=== PATIENT | female | born 1980 | race Caucasian/White ===

== ENCOUNTER 2019-02-26 23:44 | Emergency (ER) | payer OTHER ==
[~2019-02-26] VITALS: Ht 160 cm; Wt 77.1 kg
--- OUTSIDE RECORDS SUMMARY | ~2019-02-26 | XMS | Encounter Summary ---
Demographics + + + | Address | [address] | | | [place] [address] | + + + | Home Phone | | + + + | Preferred Language | Unknown | + + + | Marital Status | | + + + | Buddhism Affiliation | Unknown | + + + | Race | White | + + + | Ethnic Group | Not or | + + + Author + + + | Author | [facility] | + + + | Organization | [facility] | + + + | Address | Unknown | + + + | Phone | Unavailable | + + + Support + + + + + | Name | Relationship | Address | Phone | + + + + + | Eliel Tee | ECON | [address] | | | | | [place] | | | | | [address] | | + + + + + Care Team Providers + +------+ + | Care Card Checker Name | Role | Phone | + +------+ + PCP | Unavailable | + +------+ + Reason for Visit + + + | Reason | Comments | + + + | | | + + + Encounter Details +--------+ + + + + | Date | Type | Department | Care Team | Description | +--------+ + + + + | 06/22/ | Clinical | Center | | | | 2005 | Support | Perinatology [address] | | | | | Staff | [address] | | | | | | [place] Mailcode: [address] | | | | | | [address] | | | | | | floor, Room [address] | | | | | | [place], [place] | | | | | | [address] | | | | | | [phone] | | | +--------+ + + + + Social History + +-------+ +--------+------+ | Tobacco Use | Types | Packs/Day | Years | Date | | | | | Used | | + +-------+ +--------+------+ | Never Assessed | | | | | + +-------+ +--------+------+ + + + | Sex Assigned at | Date Recorded | | | | + + + | Not on file | | + + + + + + + | Job Start Date | Occupation | Industry | + + + + | Not on file | Not on file | Not on file | + + + + + + + + | Travel History | Travel Start | Travel End | + + + + + + | No recent travel history available. | + + documented as of this encounter Progress Notes Terri Obrien - 06/22/2005 1:22 PM PST Preoperative diagnosis: h/o child with metabolic disorder Postoperative diagnosis: same Procedure: Amniocentesis Physician: Dr. Terri Obrien M.D. Dispenser Operator: Katie Hill Brief history: Kim Tee is a 24 y.o. female gravid female at 20.5 weeks gestation, h ere for amniocentesis. She is Rh-positive. Prior to beginning the procedure, patient identity was verified, as well as the procedure t o be performed and the site. All equipment required was ready and available. The patient wa s positioned appropriately. Procedure: The amniocentesis procedure was explained to the patient, including risks, bene fits, and alternatives, and all of her questions were answered. A consent form has been com pleted and signed. The patient was placed supine and transabdominal ultrasonography reveale d a cephalic fetus and posteriorplacenta. A sufficient pocket of amniotic fluid was identif ied in the left upper quadrant. The abdominal skin was prepped with Betadine. Local anesthetic was notused. Using sterile technique and under ultrasound guidance, a 22gauge spinal needle was placed transabdominall y without difficulty. The placenta was not traversed by the needle. With the needle tip in the fluid pocket, 20 cc of clear fluid was withdrawn. The needle was removed and the fluid sent to the laboratory for analysis. heart rate was observed immediately after the pr ocedure and was stable. The patient tolerated the procedure well. She was given precautions and discharged to home. She will follow-up in the clinic in 2 we eks with . documented in this encount er Plan of Treatment Not on filedocumented as of this encounter Procedures + +--------+ + + + | Procedure Name | Priori | Date/Time | Associated Diagnosis | Comments | | | ty | | | | + +--------+ + + + | CYTOGENETICS REPORT | Routin | 06/22/2005 | | Results for this | | | e | | | procedure are in the | | | | | | results section. | + +--------+ + + + documented in this encounter Results CYTOGENETICS REPORT (06/22/2005) + + + + + + | Component | Value | Ref Range | Performed | Pathologist | | | | | At | Signature | + + + + + + | CHROMOSOME | SPECIMEN TYPE AND TYPE | | | | | REPORT | OF STUDY:A Amniotic | | | | | | Fluid: Fibroblast | | | | | | PrimaryCultureChromosome | | | | | | Results: NoneKARYOTYPE | | | | | | RESULTS: See below | | | | | | IMPRESSIONS AND | | | | | | RECOMMENDATIONS:Amniotic | | | | | | fluid cells were | | | | | | successfully grown, | | | | | | frozen and stored. | | | | | | Cellswere sent to | | | | | | [facility], [facility] | | | | | | [facility], | | | | | | 07/04/2005. For | | | | | | questions regarding this | | | | | | report, please call | | | | | | . | | | | | | The clinical | | | | | | interpretation was made | | | | | | by the clinical | | | | | | prior authorization nurse.Rendering | | | | | | Diagnostician: Fátima | | | | | | Sloan, PhD, AB, | | | | | | FACMGCytogeneticistElect | | | | | | ronically Signed | | | | | | 08/06/2005Comment: | | | | | | SOURCE OF SPECIMEN: | | | | | | Amniotic Fluid: | | | | | | Fibroblast Primary | | | | | | Culture | | | | + + + + + + + + | Specimen | + + | | + + + + + + + | Performing | Address | City/State/Zipcode | Phone Number | | Organization | | | | + + + + + | [facility] | [facility] | [place] [address] | | | [facility] | [address] | | | | | [address]VE[address] | | | + + + + + documented in this encounter Visit Diagnoses + + | Diagnosis | + + | Unspecified complication of , unspecified as to episode of care - Primary | + + documented in this encounter"
--- OUTSIDE RECORDS SUMMARY | ~2019-02-26 | XMS | Clinical Summary ---
Demographics + + + | Address | [address] | | | [place] [address] | + + + | Home Phone | | + + + | Preferred Language | Unknown | + + + | Marital Status | | + + + | Christianity Affiliation | Unknown | + + + | Race | White | + + + | Ethnic Group | Not or | + + + Author + + + | Author | [facility] | + + + | Organization | [facility] | + + + | Address | Unknown | + + + | Phone | Unavailable | + + + Support + + + + + | Name | Relationship | Address | Phone | + + + + + | Eliel Aleman | KITA | [address] | | | | | [place] | | | | | [address] | | + + + + + Care Team Providers + +------+ + | Care Custom Bike Builder Name | Role | Phone | + +------+ + PCP | Unavailable | + +------+ + Source Comments MERRY is fully live on both [facility] and [facility] InPatient.[facility] Allergies Not on File Medications Not on file Active Problems Not on file Social History + +-------+ +--------+------+ | Tobacco [...] recent travel history available. | + + Last Filed Vital Signs Not on file Plan of Treatment + + + + + | Health Maintenance | Due Date | Last Done | Comments | + + + + + | Influenza (Flu) | | | | | vaccination (#1) | 9 | | | + + + + + | Pneumococcal | Aged Out | | No longer eligible | | vaccination | | | based on patient's | | | | | age to complete this | | | | | topic | + + + + + Results Not on filefrom Last 3 Months Insurance + +--------+ +--------+ + +--------+ | Payer | Benefi | Subscriber | Effect | Phone | Address | Type | | | t Plan | ID | aisha | | | | | | / | | Dates | | | | | | Group | | | | | | + +--------+ +--------+ + +--------+ | TERRIE AND | PJ | [phone] | Effect | [phone] | [address] | Transp | | | AND | | aisha | [phone] | [address] | | | [employer] | | for | | [place], [place] | [employer] | | | [place] | | all | | [address] | [address] | | | INC | | dates | | | | + +--------+ +--------+ + +--------+ | [employer] | PROVID | [phone] | Effect | | | PPO | | | ENCE | | aisha | | | | | | PREF | | for | | | | | | | | all | | | | | | | | dates | | | | + +--------+ +--------+ + +--------+ + +--------+ +--------+ + + | Guarantor Name | Accoun | Relation to | Date | Phone | Billing Address | | | t Type | Patient | of | | | | | | | | | | + +--------+ +--------+ + + | KIM ALEMAN | Person | Self [birth year] | [address] | | | al/[place]erald | | 1981 | [phone] | [place] | | | [place] | | | [address] (Home) | [address] | | | | | | [phone] | | | | | | | 0 (Work) | | + +--------+ +--------+ + +"
--- OUTSIDE RECORDS SUMMARY | ~2019-02-26 | XMS | Encounter Summary ---
Demographics + + + | Address | [address] | | | [place] [address] | + + + | Home Phone | | + + + | Preferred Language | Unknown | + + + | Marital Status | | + + + | Restorationist Affiliation | Unknown | + + + | Race | White | + + + | Ethnic Group | Not or | + + + Author + + + | Author | [facility] | + + + | Organization | [facility] | + + + | Address | Unknown | + + + | Phone | Unavailable | + + + Support + + + + + | Name | Relationship | Address | Phone | + + + + + | Eliel Tee | ECON | [address] | | | | | [place] | | | | | [address] | | + + + + + Care Team Providers + +------+ + | Care Food Scientist Name | Role | Phone | + +------+ + PCP | Unavailable | + +------+ + Encounter Details +--------+---------+ + + + | Date | Type | Department | Care Team | Description | +--------+---------+ + + + | 06/22/ | Office | Center | Dayanna Conti, | Famil Hered Dis | | 2005 | Visit | Diagnosis | [facility] [address] | Antepart (Primary | | | | [address] | [address] | Dx) | | | | Cher Lozano Mailcode: | [place] [address] | | | | | [address], | [phone] | | | | | 8th floor, Room | | | | | | [address] [place], [place] | | | | | | [address] | | | | | | [phone] | | | +--------+---------+ + + + Social History + +-------+ [...] documented as of this encounter Progress Notes Zahra Lowry - 06/22/2005 7:08 PM COLTSee letter. documented in this encounter Plan of Treatment Not on filedocumented as of this encounter Visit Diagnoses + + | Diagnosis | + + | Hereditary disease in family possibly affecting fetus, affecting management of mother, | | antepartum condition or complication - Primary | + + documented in this encounter"
--- OUTSIDE RECORDS SUMMARY | ~2019-02-26 | XMS | Encounter Summary ---
Demographics + + + | Address | [address] | | | [place] [address] | + + + | Home Phone | | + + + | Preferred Language | Unknown | + + + | Marital Status | | + + + | Lutheran Affiliation | Unknown | + + + | Race | White | + + + | Ethnic Group | Not or | + + + Author + + + | Author | [facility] | + + + | Organization | [facility] | + + + | Address | Unknown | + + + | Phone | Unavailable | + + + Support + + + + + | Name | Relationship | Address | Phone | + + + + + | Eliel Tee | ECON | [address] | | | | | [place] | | | | | [address] | | + + + + + Care Team Providers + +------+ + | Care Loom Changer Name | Role | Phone | + [...] | | | Cher Lozano Mailcode: | [place] [address] | | | | | [address], | [phone] | | | | | 8th floor, Room | | | | | | [address] [place], [place] | | | | | | [address] | | | | | | [phone] | | | +--------+---------+ + + + [...]
--- OUTSIDE RECORDS SUMMARY | ~2019-02-26 | XMS | Encounter Summary ---
Demographics + + + | Address | [address] | | | [place] [address] | + + + | Home Phone | | + + + | Preferred Language | Unknown | + + + | Marital Status | | + + + | Taoist Affiliation | Unknown | + + + | Race | White | + + + | Ethnic Group | Not or | + + + Author + + + | Author | [facility] | + + + | Organization | [facility] | + + + | Address | Unknown | + + + | Phone | Unavailable | + + + Support + + + + + | Name | Relationship | Address | Phone | + + + + + | Eliel Tee | ECON | [address] | | | | | [place] | | | | | [address] | | + + + + + Care Team Providers + +------+ + | Care Scientific Aide Name | Role | Phone | + +------+ + PCP | Unavailable | + +------+ + Encounter Details +--------+ + + + + | Date | Type | Department | Care Team | Description | +--------+ + + + + | 06/22/ | Ancillary | Registration [address] | Terri Obrien MD | | | 2005 | Registratio | [address] | [address] | | | | n | [address] Mailcode: [id number] | [address] | | | | | [place], [place] | [place], [place] | | | | | [address] | [address] | | | | | [phone] | [phone] | | | | | | | | +--------+ + + + [...] + + documented as of this encounter Plan of Treatment Not on filedocumented as of this encounter Procedures + +--------+ + + + | Procedure Name | Priori | Date/Time | Associated Diagnosis | Comments | | | ty | | | | + +--------+ + + + | LAB OTHER | Routin | 06/22/2005 | | Results for this | | | e | 11:51 AM | | procedure are in the | | | | PST | | results section. | + +--------+ + + + documented in this encounter Results LAB OTHER (06/22/2005 11:51 AM PST) + + + + + + | Component | Value | Ref Range | Performed | Pathologist | | | | | At | Signature | + + + + + + | MISC REF | FATTY ACID OXIDATION | | [facility] | | | TEST NAME | DISORDER, fibroblasts | | DEPARTMENT | | | | | | OF | | | | | | PATHOLOGY | | + + + + + + | MISC REF | See scanned report in | | [facility] | | | TEST RESULT | [facility]. | | DEPARTMENT | | | | | | OF | | | | | | PATHOLOGY | | + + + + + + | NORMAL | Interpretation: | | [facility] | | | RANGE | RadioHPLC profiling of | | DEPARTMENT | | | | B-oxidation | | OF | | | | [id number] | | PATHOLOGY | | | | diates derived from | | | | | | palmitate, | | | | | | branched-chain amino | | | | | | acids [id number] | | | | | | revealed normal results, | | | | | | outside of mildly | | | | | | elevatedpalmityle- | | | | | | (C16)-carnitine. | | | | | | However, amniocyte | | | | | | viability and growth | | | | | | werenot optimal, which | | | | | | may influence these | | | | | | results and obscure the | | | | | | partiallong chain fatty | | | | | | acid defect noted in the | | | | | | sibling, Ambrosey | | | | | | Coiner. | | | | + + + + + + | REFERRAL | [facility] | | [facility] | | | LAB NAME | [place] | | DEPARTMENT | | | | | | OF | | | | | | PATHOLOGY | | + + + + + + + + | Specimen | + + | | + + + + + + + | Performing | Address | City/State/Zipcode | Phone Number | | Organization | | | | + + + + + | [facility] DEPARTMENT | [address] | [place] [address] | | | PATHOLOGY | [facility] | | | + + + + + | [facility] | [address] | [place] [address] | | | PATHOLOGY | [facility] | | | + + + + + documented in this encounter Visit Diagnoses Not on filedocumented in this encounter"
--- OUTSIDE RECORDS SUMMARY | ~2019-02-26 | XMS | Clinical Summary ---
Demographics + + + | Address | [address] | | | [place] [address] | + + + | Home Phone | | + + + | Preferred Language | Unknown | + + + | Marital Status | | + + + | Gnosticist Affiliation | Unknown | + + + | Race | White | + + + | Ethnic Group | Not or | + + + Author + + + | Author | [facility] | + + + | Organization | [facility] | + + + | Address | Unknown | + + + | Phone | Unavailable | + + + Support + + + + + | Name | Relationship | Address | Phone | + + + + + | Eliel Aleman | KITA | [address] | | | | | [place] | | | | | [address] | | + + + + + Care Team Providers + +------+ + | Care Aerobics Instructor Name | Role | Phone | + +------+ + PCP | Unavailable | + +------+ + Source Comments MERRY is fully live on both [facility] and [facility] InPatient.[facility] Allergies Not [...] | [employer] | | for | | [place], [place] | [employer] | | | LL | | all | | [address] | [address] | | | INC | [...] | | al/[place]erald | | 1981 | [phone] | [place] | | | [place] | | | [address] (Home) | [address] | | | | | | [phone] | | | | | | | 0 (Work) | | + +--------+ +--------+ + +"
--- OUTSIDE RECORDS SUMMARY | ~2019-02-26 | XMS | Encounter Summary ---
Demographics + + + | Address | [address] | | | [place] [address] | + + + | Home Phone | | + + + | Preferred Language | Unknown | + + + | Marital Status | | + + + | Anglican Affiliation | Unknown | + + + | Race | White | + + + | Ethnic Group | Not or | + + + Author + + + | Organization | Unknown | + + + | Address | Unknown | + + + | Phone | Unavailable | + + + Support + + + + + | Name | Relationship | Address | Phone | + + + + + | Eliel Aleman | ECON | [address] | | | | | [place] | | | | | [address] | | + + + + + Care Team Providers + +------+ + | Care County Assessor Name | Role | Phone | + +------+ + PCP | Unavailable | + +------+ + Encounter Details +--------+ + + + + | Date | Type | Department | Care Team | Description | +--------+ + + + + | 06/19/ | Results | | Other, Faculty | | | 2005 | Only | | [phone] | | +--------+ + + + + [...] | + +--------+ + + + | [facility] GUIDANCE | Routin | 06/22/2005 | | Results for this | | AMNIOCENTESIS | e | 1:01 PM | | procedure are in the | | | | PST | | results section. | + +--------+ + + + | US AMNIOCENTESIS | Routin | 06/22/2005 | | Results for this | | | e | 1:01 PM | | procedure are in the | | | | PST | | results section. | + +--------+ + + + | US PREG UTERUS | Routin | 06/22/2005 | | Results for this | | DETAIL | e | 1:01 PM | | procedure are in the | | | | PST | | results section. | + +--------+ + + + documented in this encounter Results US GUIDANCE AMNIOCENTESIS (06/22/2005 1:01 PM PST) + + + + + + | Component | Value | Ref Range | Performed | Pathologist | | | | | At | Signature | + + + + + + | [facility] GUIDANCE | Radiologist 1: TINY | | | | | | Yulissa ZUNIGAPat. Name: | | | | | AMNIOCENTES | KIM ALEMAN | | | | | IS | MRN: | | | | | | [id number] Date: | | | | | | 06/22/2005 | | | | | | Accn: | | | | | | [id number]: | | | | | | 1980 | | | | | | Age: | | | | | | 24Height: | | | | | | | | | | | | | | | | | | Weight:BP: | | | | | | | | | | | | | | | | | | ---LMP: | | | | | | 02/01/2005 | | | | | | GA Select: 20.1 weeks | | | | | | (LMP)GA by LMP: 20.1 | | | | | | weeks JORGE: | | | | | | 11/08/2005 | | | | | | (LMP)GA by US: 20.5 | | | | | | weeksPregnancies: | | | | | | 2, Para | | | | | | 1001Hist/Ind: Hx of | | | | | | Previous Child w/ | | | | | | Metabolic | | | | | | Disorder | | | | | | | | | | | | M | | | | | | EASUREMENTS /T/ | | | | | | AGE | | | | | | GROWTH EVALUATION | | | | | | Measurement GA | | | | | | Range Source %for | | | | | | GA Ratios | | | | | | ---- ------- | | | | | | ------- | | | | | | BPD | | | | | | 4.9 cm 20.9 | | | | | | (19.2-22.6) [facility] BPD | | | | | | 71% FL/BPD 0.67HC 18.4 | | | | | | cm 20.8 (19.3-22.3) | | | | | | [facility] HC 70% FL/AC | | | | | | 0.21AC 16.0 cm 21.1 | | | | | | (19.0-23.2) [facility] AC | | | | | | 71% HC/AC 1.15 (1.06 | | | | | | -1.24)FL 3.3 cm 20.4 | | | | | | (18.6-22.2) [facility] FL | | | | | | 57% CI 0.74 | | | | | | (0.70 -0.86)HL 3.3 cm | | | | | | 21.2 (19.5-22.9) Natalia | | | | | | HL 79% GA for | | | | | | sonogram 20.5 wk | | | | | | (19.1-21.9) | | | | | | Weight Estimate:based on | | | | | | (BPD,HC,AC,FL) [facility] | | | | | | Weight: 376 gm | | | | | | (321-431)[place] | | | | | | | | | | | | | | | | | | : 0lbs, 13oz | | | | | | | | | | | | | | | | | | CLINICAL | | | | | | SUMMARY ANATOMY: | | | | | | | | | | | | Seen Not | | | | | | Seen Abnormal | | | | | | | | | | | | | | | | | | Seen PreviousBPD | | | | | | level | | | | | | (X) ( ) | | | | | | ( ) ( | | | | | | )Lateral ventricles | | | | | | (X) ( ) | | | | | | ( ) ( | | | | | | )Choroid plexus | | | | | | (X) ( | | | | | | ) ( ) ( | | | | | | )Posterior fossa | | | | | | (X) ( | | | | | | ) ( ) ( | | | | | | )Nuchal | | | | | | fold/translucency | | | | | | ( ) (X) ( ) | | | | | | ( )Spine | | | | | | | | | | | | (X) ( ) ( | | | | | | ) ( )Four | | | | | | chamber heart | | | | | | (X) ( ) | | | | | | ( ) ( )LVOT | | | | | | | | | | | | (X) ( ) | | | | | | ( ) ( )RVOT | | | | | | | | | | | | (X) ( ) | | | | | | ( ) ( | | | | | | )Aortic arch | | | | | | ( ) | | | | | | (X) ( ) ( | | | | | | )Ductal arch | | | | | | ( ) | | | | | | (X) ( ) ( | | | | | | )Diaphragm | | | | | | (X) | | | | | | ( ) ( ) ( | | | | | | )Stomach | | | | | | (X) | | | | | | ( ) ( ) | | | | | | ( )Cord | | | | | | insertion/abdominal wall | | | | | | (X) ( ) ( ) | | | | | | ( )Kidneys | | | | | | | | | | | | (X) ( ) ( ) | | | | | | ( )Bladder | | | | | | | | | | | | (X) ( ) ( ) | | | | | | ( )3 vessel | | | | | | cord | | | | | | (X) ( ) ( | | | | | | ) ( )Facial | | | | | | profile | | | | | | (X) ( ) | | | | | | ( ) ( )Orbits | | | | | | | | | | | | (X) ( ) | | | | | | ( ) ( | | | | | | )Nose/lips | | | | | | ( ) | | | | | | (x) ( ) ( | | | | | | )Nasal bone | | | | | | (X) | | | | | | ( ) ( ) ( | | | | | | )Upper extremities | | | | | | (X) ( | | | | | | ) ( ) ( | | | | | | )Lower extremities | | | | | | (X) ( ) | | | | | | ( ) ( | | | | | | )Radius/ulna | | | | | | (X) ( | | | | | | ) ( ) ( | | | | | | )Tibia/fibula | | | | | | (X) | | | | | | ( ) ( ) ( | | | | | | )Hands | | | | | | (X) | | | | | | ( ) ( ) | | | | | | ( )Feet | | | | | | | | | | | | ( ) (X) ( ) | | | | | | ( ) Type of | | | | | | Gestation: | | | | | | SingletonIntrauterine | | | | | | in breech | | | | | | presentation.Placental | | | | | | location: | | | | | | PosteriorThere is no | | | | | | placenta previa.Amniotic | | | | | | fluid volume is | | | | | | normal.Uterus and | | | | | | adnexa: No abnormalities | | | | | | seenThere is | | | | | | heart motion and gross | | | | | | | | | | | | movement.Successful | | | | | | amniocentesis performed | | | | | | by .Post | | | | | | procedural heart motion | | | | | | is documented.The feet | | | | | | are not well seen due to | | | | | | position. | | | | | | | | | | | | | | | | | | IMPRESSIO | | | | | | N:24 year old at | | | | | | 20.1 weeks with | | | | | | complicated | | | | | | byhistory of previous | | | | | | child with metabolic | | | | | | syndrome1. Single viable | | | | | | intrauterine | | | | | | pregnancy2. Targeted | | | | | | anomaly screen does not | | | | | | reveal any major or | | | | | | minormarkers for | | | | | | aneuploidy.The feet and | | | | | | nose lips however are | | | | | | not wellseen3. | | | | | | Amniocentesis is | | | | | | performed without | | | | | | difficulty | | | | | | Recommendations:1. | | | | | | Follow up in 4 weeks to | | | | | | visualize feet and nose | | | | | | lips | | | | + + + + + + + + | Specimen | + + | | + + + + + | Narrative | Performed At | + + + | Ordered by FRACISCO ORTIZ | | + + + + +---------+ + + | Performing | Address | City/State/Zipcode | Phone Number | | Organization | | | | + +---------+ + + | [facility] DEPARTMENT OF | | | | | RADIOLOGY | | | | + +---------+ + + US AMNIOCENTESIS (06/22/2005 1:01 PM PST) + + + + + + | Component | Value | Ref Range | Performed | Pathologist | | | | | At | Signature | + + + + + + | US | Radiologist 1: TINY | | | | | AMNIOCENTES | Yulissa ZUNIGAPatMira Name: | | | | | TIP | KIM ALEMAN | | | | | | MRN: | | | | | | [id number] Date: | | | | | | 06/22/2005 | | | | | | Accn: | | | | | | [id number]: | | | | | | 1980 | | | | | | Age: | | | | | | 24Height: | | | | | | | | | | | | | | | | | | Weight:BP: | | | | | | | | | | | | | | | | | | ---LMP: | | | | | | 02/01/2005 | | | | | | GA Select: 20.1 weeks | | | | | | (LMP)GA by LMP: 20.1 | | | | | | weeks JORGE: | | | | | | 11/08/2005 | | | | | | (LMP)GA by US: 20.5 | | | | | | weeksPregnancies: | | | | | | 2, Para | | | | | | 1001Hist/Ind: Hx of | | | | | | Previous Child w/ | | | | | | Metabolic | | | | | | Disorder | | | | | | | | | | | | M | | | | | | EASUREMENTS /T/ | | | | | | AGE | | | | | | GROWTH EVALUATION | | | | | | Measurement GA | | | | | | Range Source %for | | | | | | GA Ratios | | | | | | ---- ------- | | | | | | ------- | | | | | | BPD | | | | | | 4.9 cm 20.9 | | | | | | (19.2-22.6) [facility] BPD | | | | | | 71% FL/BPD 0.67HC 18.4 | | | | | | cm 20.8 (19.3-22.3) | | | | | | [facility] HC 70% FL/AC | | | | | | 0.21AC 16.0 cm 21.1 | | | | | | (19.0-23.2) [facility] AC | | | | | | 71% HC/AC 1.15 (1.06 | | | | | | -1.24)FL 3.3 cm 20.4 | | | | | | (18.6-22.2) [facility] FL | | | | | | 57% CI 0.74 | | | | | | (0.70 -0.86)HL 3.3 cm | | | | | | 21.2 (19.5-22.9) Natalia | | | | | | HL 79% GA for | | | | | | sonogram 20.5 wk | | | | | | (19.1-21.9) | | | | | | Weight Estimate:based on | | | | | | (BPD,HC,AC,FL) [facility] | | | | | | Weight: 376 gm | | | | | | (321-431)[facility] | | | | | | | | | | | | | | | | | | : 0lbs, 13oz | | | | | | | | | | | | | | | | | | CLINICAL | | | | | | SUMMARY ANATOMY: | | | | | | | | | | | | Seen Not | | | | | | Seen Abnormal | | | | | | | | | | | | | | | | | | Seen PreviousBPD | | | | | | level | | | | | | (X) ( ) | | | | | | ( ) ( | | | | | | )Lateral ventricles | | | | | | (X) ( ) | | | | | | ( ) ( | | | | | | )Choroid plexus | | | | | | (X) ( | | | | | | ) ( ) ( | | | | | | )Posterior fossa | | | | | | (X) ( | | | | | | ) ( ) ( | | | | | | )Nuchal | | | | | | fold/translucency | | | | | | ( ) (X) ( ) | | | | | | ( )Spine | | | | | | | | | | | | (X) ( ) ( | | | | | | ) ( )Four | | | | | | chamber heart | | | | | | (X) ( ) | | | | | | ( ) ( )LVOT | | | | | | | | | | | | (X) ( ) | | | | | | ( ) ( )RVOT | | | | | | | | | | | | (X) ( ) | | | | | | ( ) ( | | | | | | )Aortic arch | | | | | | ( ) | | | | | | (X) ( ) ( | | | | | | )Ductal arch | | | | | | ( ) | | | | | | (X) ( ) ( | | | | | | )Diaphragm | | | | | | (X) | | | | | | ( ) ( ) ( | | | | | | )Stomach | | | | | | (X) | | | | | | ( ) ( ) | | | | | | ( )Cord | | | | | | insertion/abdominal wall | | | | | | (X) ( ) ( ) | | | | | | ( )Kidneys | | | | | | | | | | | | (X) ( ) ( ) | | | | | | ( )Bladder | | | | | | | | | | | | (X) ( ) ( ) | | | | | | ( )3 vessel | | | | | | cord | | | | | | (X) ( ) ( | | | | | | ) ( )Facial | | | | | | profile | | | | | | (X) ( ) | | | | | | ( ) ( )Orbits | | | | | | | | | | | | (X) ( ) | | | | | | ( ) ( | | | | | | )Nose/lips | | | | | | ( ) | | | | | | (x) ( ) ( | | | | | | )Nasal bone | | | | | | (X) | | | | | | ( ) ( ) ( | | | | | | )Upper extremities | | | | | | (X) ( | | | | | | ) ( ) ( | | | | | | )Lower extremities | | | | | | (X) ( ) | | | | | | ( ) ( | | | | | | )Radius/ulna | | | | | | (X) ( | | | | | | ) ( ) ( | | | | | | )Tibia/fibula | | | | | | (X) | | | | | | ( ) ( ) ( | | | | | | )Hands | | | | | | (X) | | | | | | ( ) ( ) | | | | | | ( )Feet | | | | | | | | | | | | ( ) (X) ( ) | | | | | | ( ) Type of | | | | | | Gestation: | | | | | | SingletonIntrauterine | | | | | | in breech | | | | | | presentation.Placental | | | | | | location: | | | | | | PosteriorThere is no | | | | | | placenta previa.Amniotic | | | | | | fluid volume is | | | | | | normal.Uterus and | | | | | | adnexa: No abnormalities | | | | | | seenThere is | | | | | | heart motion and gross | | | | | | | | | | | | movement.Successful | | | | | | amniocentesis performed | | | | | | by .Post | | | | | | procedural heart motion | | | | | | is documented.The feet | | | | | | are not well seen due to | | | | | | position. | | | | | | | | | | | | | | | | | | IMPRESSIO | | | | | | N:24 year old at | | | | | | 20.1 weeks with | | | | | | complicated | | | | | | byhistory of previous | | | | | | child with metabolic | | | | | | syndrome1. Single viable | | | | | | intrauterine | | | | | | pregnancy2. Targeted | | | | | | anomaly screen does not | | | | | | reveal any major or | | | | | | minormarkers for | | | | | | aneuploidy.The feet and | | | | | | nose lips however are | | | | | | not wellseen3. | | | | | | Amniocentesis is | | | | | | performed without | | | | | | difficulty | | | | | | Recommendations:1. | | | | | | Follow up in 4 weeks to | | | | | | visualize feet and nose | | | | | | lips | | | | + + + + + + + + | Specimen | + + | | + + + + + | Narrative | Performed At | + + + | Ordered by FRACISCO ORTIZ | | + + + + +---------+ + + | Performing | Address | City/State/Zipcode | Phone Number | | Organization | | | | + +---------+ + + | [facility] DEPARTMENT OF | | | | | RADIOLOGY | | | | + +---------+ + + US PREG UTERUS DETAIL (06/22/2005 1:01 PM PST) + + + + + + | Component | Value | Ref Range | Performed | Pathologist | | | | | At | Signature | + + + + + + | US PREG | Radiologist 1: TINY, | | | | | UTERUS | Ananda ZUNIGA Name: | | | | | | KIM ALEMAN | | | | | DETAIL | MRN: | | | | | | [id number] Date: | | | | | | 06/22/2005 | | | | | | Accn: | | | | | | [id number]: | | | | | | 1980 | | | | | | Age: | | | | | | 24Height: | | | | | | | | | | | | | | | | | | Weight:BP: | | | | | | | | | | | | | | | | | | ---LMP: | | | | | | 02/01/2005 | | | | | | GA Select: 20.1 weeks | | | | | | (LMP)GA by LMP: 20.1 | | | | | | weeks JORGE: | | | | | | 11/08/2005 | | | | | | (LMP)GA by US: 20.5 | | | | | | weeksPregnancies: | | | | | | 2, Para | | | | | | 1001Hist/Ind: Hx of | | | | | | Previous Child w/ | | | | | | Metabolic | | | | | | Disorder | | | | | | | | | | | | M | | | | | | EASUREMENTS /T/ | | | | | | AGE | | | | | | GROWTH EVALUATION | | | | | | Measurement GA | | | | | | Range Source %for | | | | | | GA Ratios | | | | | | ---- ------- | | | | | | ------- | | | | | | BPD | | | | | | 4.9 cm 20.9 | | | | | | (19.2-22.6) [facility] BPD | | | | | | 71% FL/BPD 0.67HC 18.4 | | | | | | cm 20.8 (19.3-22.3) | | | | | | [facility] HC 70% FL/AC | | | | | | 0.21AC 16.0 cm 21.1 | | | | | | (19.0-23.2) [facility] AC | | | | | | 71% HC/AC 1.15 (1.06 | | | | | | -1.24)FL 3.3 cm 20.4 | | | | | | (18.6-22.2) [facility] FL | | | | | | 57% CI 0.74 | | | | | | (0.70 -0.86)HL 3.3 cm | | | | | | 21.2 (19.5-22.9) Natalia | | | | | | HL 79% GA for | | | | | | sonogram 20.5 wk | | | | | | (19.1-21.9) | | | | | | Weight Estimate:based on | | | | | | (BPD,HC,AC,FL) Frederic | | | | | | Weight: 376 gm | | | | | | (321-431)Frederic | | | | | | | | | | | | | | | | | | : 0lbs, 13oz | | | | | | | | | | | | | | | | | | CLINICAL | | | | | | SUMMARY ANATOMY: | | | | | | | | | | | | Seen Not | | | | | | Seen Abnormal | | | | | | | | | | | | | | | | | | Seen PreviousBPD | | | | | | level | | | | | | (X) ( ) | | | | | | ( ) ( | | | | | | )Lateral ventricles | | | | | | (X) ( ) | | | | | | ( ) ( | | | | | | )Choroid plexus | | | | | | (X) ( | | | | | | ) ( ) ( | | | | | | )Posterior fossa | | | | | | (X) ( | | | | | | ) ( ) ( | | | | | | )Nuchal | | | | | | fold/translucency | | | | | | ( ) (X) ( ) | | | | | | ( )Spine | | | | | | | | | | | | (X) ( ) ( | | | | | | ) ( )Four | | | | | | chamber heart | | | | | | (X) ( ) | | | | | | ( ) ( )LVOT | | | | | | | | | | | | (X) ( ) | | | | | | ( ) ( )RVOT | | | | | | | | | | | | (X) ( ) | | | | | | ( ) ( | | | | | | )Aortic arch | | | | | | ( ) | | | | | | (X) ( ) ( | | | | | | )Ductal arch | | | | | | ( ) | | | | | | (X) ( ) ( | | | | | | )Diaphragm | | | | | | (X) | | | | | | ( ) ( ) ( | | | | | | )Stomach | | | | | | (X) | | | | | | ( ) ( ) | | | | | | ( )Cord | | | | | | insertion/abdominal wall | | | | | | (X) ( ) ( ) | | | | | | ( )Kidneys | | | | | | | | | | | | (X) ( ) ( ) | | | | | | ( )Bladder | | | | | | | | | | | | (X) ( ) ( ) | | | | | | ( )3 vessel | | | | | | cord | | | | | | (X) ( ) ( | | | | | | ) ( )Facial | | | | | | profile | | | | | | (X) ( ) | | | | | | ( ) ( )Orbits | | | | | | | | | | | | (X) ( ) | | | | | | ( ) ( | | | | | | )Nose/lips | | | | | | ( ) | | | | | | (x) ( ) ( | | | | | | )Nasal bone | | | | | | (X) | | | | | | ( ) ( ) ( | | | | | | )Upper extremities | | | | | | (X) ( | | | | | | ) ( ) ( | | | | | | )Lower extremities | | | | | | (X) ( ) | | | | | | ( ) ( | | | | | | )Radius/ulna | | | | | | (X) ( | | | | | | ) ( ) ( | | | | | | )Tibia/fibula | | | | | | (X) | | | | | | ( ) ( ) ( | | | | | | )Hands | | | | | | (X) | | | | | | ( ) ( ) | | | | | | ( )Feet | | | | | | | | | | | | ( ) (X) ( ) | | | | | | ( ) Type of | | | | | | Gestation: | | | | | | SingletonIntrauterine | | | | | | in breech | | | | | | presentation.Placental | | | | | | location: | | | | | | PosteriorThere is no | | | | | | placenta previa.Amniotic | | | | | | fluid volume is | | | | | | normal.Uterus and | | | | | | adnexa: No abnormalities | | | | | | seenThere is | | | | | | heart motion and gross | | | | | | | | | | | | movement.Successful | | | | | | amniocentesis performed | | | | | | by .Post | | | | | | procedural heart motion | | | | | | is documented.The feet | | | | | | are not well seen due to | | | | | | position. | | | | | | | | | | | | | | | | | | IMPRESSIO | | | | | | N:24 year old at | | | | | | 20.1 weeks with | | | | | | complicated | | | | | | byhistory of previous | | | | | | child with metabolic | | | | | | syndrome1. Single viable | | | | | | intrauterine | | | | | | pregnancy2. Targeted | | | | | | anomaly screen does not | | | | | | reveal any major or | | | | | | minormarkers for | | | | | | aneuploidy.The feet and | | | | | | nose lips however are | | | | | | not wellseen3. | | | | | | Amniocentesis is | | | | | | performed without | | | | | | difficulty | | | | | | Recommendations:1. | | | | | | Follow up in 4 weeks to | | | | | | visualize feet and nose | | | | | | lips | | | | + + + + + + + + | Specimen | + + | | + + + + + | Narrative | Performed At | + + + | Ordered by FRACISCO ORTIZ | | + + + + +---------+ + + | Performing | Address | City/State/Zipcode | Phone Number | | Organization | | | | + +---------+ + + | [facility] DEPARTMENT OF | | | | | RADIOLOGY | | | | + +---------+ + + documented in this encounter Visit Diagnoses Not on filedocumented in this encounter"
--- OUTSIDE RECORDS SUMMARY | ~2019-02-26 | XMS | Encounter Summary ---
Demographics + + + | Address | [address] | | | [place] [address] | + + + | Home Phone | | + + + | Preferred Language | Unknown | + + + | Marital Status | | + + + | Anabaptist Affiliation | Unknown | + + + | Race | White | + + + | Ethnic Group | Not or | + + + Author + + + | Author | [facility] | + + + | Organization | [facility] | + + + | Address | Unknown | + + + | Phone | Unavailable | + + + Support + + + + + | Name | Relationship | Address | Phone | + + + + + | Eliel Tee | ECON | [address] | | | | | [place] | | | | | [address] | | + + + + + Care Team Providers + +------+ + | Care Acute Care Nurse Practitioner Name | Role | Phone | + [...] | | | | | floor, Room [address] | | | | | | [place], [place] | | | | | | [address] | | | | | | [phone] | | | +--------+ + + + [...] Procedure: Amniocentesis Physician: Dr. Terri Obrien M.D. 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 | | | + + + + + documented in this encounter Visit Diagnoses + + | Diagnosis | + + | Unspecified complication of , unspecified as to episode of care - Primary | + + documented in this encounter"
--- OUTSIDE RECORDS SUMMARY | ~2019-02-26 | XMS | Encounter Summary ---
Demographics + + + | Address | [address] | | | [place] [address] | + + + | Home Phone | | + + + | Preferred Language | Unknown | + + + | Marital Status | | + + + | Advent Affiliation | Unknown | + + + | Race | White | + + + | Ethnic Group | Not or | + + + Author + + + | Author | [facility] | + + + | Organization | [facility] | + + + | Address | Unknown | + + + | Phone | Unavailable | + + + Support + + + + + | Name | Relationship | Address | Phone | + + + + + | Eliel Tee | ECON | [address] | | | | | [place] | | | | | [address] | | + + + + + Care Team Providers + +------+ + | Care Traffic Director Name | Role | Phone | + [...] [address] | | | | | [place], [place] | [place], [place] | | | | | [address] | [phone] | | | | | [phone] | [phone] | | | | | | | [...] | | OF | | | | [id number] | | PATHOLOGY | | | | diates derived from | | | | | | palmitate, | | | | | | branched-chain amino | | | | | | acids [id number] | | | | | | revealed [...] + + + + | REFERRAL | [facility] | | [facility] | | | [...] | + + + + + | [facility]PARTMENT | [address] | [place] [address] | | | PATHOLOGY | [facility] | | | + + + + + | [facility] | [address] | [place] [address] | | | PATHOLOGY | [facility] | | | + + + + + documented in this encounter Visit Diagnoses Not on filedocumented in this encounter"
--- OUTSIDE RECORDS SUMMARY | ~2019-02-26 | XMS | Encounter Summary ---
Demographics + + + | Address | [address] | | | [place] [address] | + + + | Home Phone | | + + + | Preferred Language | Unknown | + + + | Marital Status | | + + + | Zoroastrianism Affiliation | Unknown | + + + [...] [place] | | | | | [address] | | + + + + + Care Team Providers + +------+ + | Care Farm Specialist Name | Role | Phone | + +------+ + PCP | Unavailable | + +------+ + Encounter Details +--------+ + + + + | Date | Type | Department | Care Team | Description | +--------+ + + + + | 06/19/ | Results | | Other, Faculty | | | 2005 | Only | | [phone] | | +--------+ + + + + [...] MRN: | | | | | | [id number] Date: | | | | | | 06/22/2005 | | | | | | Accn: | | | | | | [id number]: | | | | | | 1980 [...] | | + +---------+ + + | [facility] DEPARTMENT OF | | | | | [...] MRN: | | | | | | [id number] Date: | | | | | | 06/22/2005 | | | | | | Accn: | | | | | | [id number]: | | | | | | 1980 [...] MRN: | | | | | | [id number] Date: | | | | | | 06/22/2005 | | | | | | Accn: | | | | | | [id number]: | | | | | | 1980 [...] | | + +---------+ + + | [facility] DEPARTMENT OF | | | | | RADIOLOGY | | | | + +---------+ + + documented in this encounter Visit Diagnoses Not on filedocumented in this encounter"
[~2019-02-26 23:44] MED LIST: ELINEST1 EACH PO; IBUPROFEN600 MG PO; MAXALT10 MG PO; NADOLOL20 MG PO; OMEPRAZOLE20 MG PO; PERCOCET 5-3251 EACH PO; ZYRTEC10 MG PO
[2019-02-27] MEDS ORDERED: PROPRANOLOL HCL60 MG PO (00:03)
[2019-02-27] MEDS ORDERED: ZOFRAN4 MG PO (01:35)
[2019-02-27] MEDS ORDERED: NORCO 5-325 TA1 EACH PO (01:35)
== END 2019-02-27 01:50 | disposition home or self-care (01) ==
LOC: ED 23:44
PROC: 4A0D7LZ Measurement of Urinary Volume, Via Natural or Artificial Opening (ICD-10-PCS; principal; 2019-02-26)
DX: N23 Unspecified renal colic (principal); G43.909 Migraine, unspecified, not intractable, without status migrainosus; Z87.442 Personal history of urinary calculi; Z87.891 Personal history of nicotine dependence; Z79.899 Other long term (current) drug therapy
CPT/HCPCS: 51798; 74176; 80053; 81001; 85025; 99284-25; J1885; J2405

== ENCOUNTER 2019-04-10 23:43 | Emergency (ER) | payer BC, OTHER ==
[~2019-04-10] VITALS: Ht 160 cm; Wt 74.8 kg
[~2019-04-10 23:43] MED LIST changes: +NORCO 5-325 TA1 EACH PO; +PROPRANOLOL HCL60 MG PO; +ZOFRAN4 MG PO
[2019-04-11] MEDS ORDERED: LEVAQUIN500 MG PO (00:06)
[2019-04-11] MEDS ORDERED: DILAUDID2 MG PO (05:12)
[2019-04-11] MEDS ORDERED: PHENERGAN25 MG/1 ML PO (05:12)
[2019-04-11] MEDS ORDERED: FLOMAX0.4 MG PO (05:12)
== END 2019-04-11 05:41 | disposition home or self-care (01) ==
LOC: ED 23:43
DX: N13.2 Hydronephrosis with renal and ureteral calculous obstruction (principal); G43.909 Migraine, unspecified, not intractable, without status migrainosus; Z79.899 Other long term (current) drug therapy
CPT/HCPCS: 74176; 80053; 81001; 85025; 96374; 96375; 96376; 99284-25; J1170; J1885; J2405; J2550